=== PATIENT | male | born 1960 | race Two or more races ===

== ENCOUNTER 2018-09-25 14:24 | Emergency (ER) | payer MEDICARE, MEDICAID ==
[~2018-09-25] VITALS: Ht 172.7 cm; Wt 104.3 kg
[2018-09-25 14:30] VITALS: BP 123/73
[2018-09-25] MEDS ORDERED: KETOROLAC TROMETH 60MG/2ML VIAL IM ONE (15:15)
== END 2018-09-25 15:35 | disposition home or self-care (01) ==
LOC: EDBD 14:24 → ER 14:32
DX: S39.012A Strain of muscle, fascia and tendon of lower back, initial encounter (principal); E78.5 Hyperlipidemia, unspecified; I10 Essential (primary) hypertension; V49.59XA Passenger injured in collision with other motor vehicles in traffic accident, initial encounter; Y93.89 Activity, other specified; Y99.8 Other external cause status; Y92.488 Other paved roadways as the place of occurrence of the external cause
CPT/HCPCS: 96372; 99283; J1885